=== PATIENT | male | born 1970 | race Caucasian/White ===

== ENCOUNTER 2020-03-28 10:23 | Outpatient (CLI) | payer OTHER, SELFPAY ==
--- NOTE | 2020-03-28 10:27 | EST_ITS ---
Patient Info Name: Tariq Rae Age: 50 years : 1970 Gender: Male Ht: 76 in Wt: 255 lbs BSA: 2.52 m2 Exam Date: 03/28/2020 10:37 AM Exam Location: [facility] Stress Patient Status: Outpatient Admit Date: 03/28/2020 Staff Ordering Physician: Bonnie Diaz NP Attending Provider: Bonnie Diaz NP Exercise Technologist: Ena Yo RDCS Exercise Physician: Lewis Trent DO Exam Type: CA stress test treadmill Study Info Indications R07.89 - Other chest pain A treadmill exercise stress test was performed. Summary 1. 1. Negative Harjeet exercise stress test for ischemic ST changes by ECG criteria. 2. 2. Good functional capacity, achieving 12 METs of workload. 3. 3. Baseline hypertension. 4. 4. Appropriate HR response to exercise. 5. 5. Appropriate HR recovery at 1 minute post exercise. 6. 6. No imaging with stress testing. 7. 7. Patient informed of the above results. Protocol: Harjeet Stress ECG Details Stage: REST Duration (min): 13 min : 54 sec Speed (mph): 0.0 Grade (%): 0 HR (bpm): 70 SBP (mmHg): 153 DBP (mmHg): 90 METS: --- Stage: REST Duration (min): 14 min : 19 sec Speed (mph): 0.0 Grade (%): 0 HR (bpm): 70 SBP (mmHg): 153 DBP (mmHg): 90 METS: --- Stage: STAGE 1 Duration (min): 1 min : 0 sec Speed (mph): 1.7 Grade (%): 10 HR (bpm): 93 SBP (mmHg): 153 DBP (mmHg): 90 METS: --- Stage: STAGE 1 Duration (min): 2 min : 0 sec Speed (mph): 1.7 Grade (%): 10 HR (bpm): 102 SBP (mmHg): 153 DBP (mmHg): 90 METS: --- Stage: STAGE 1 Duration (min): 3 min : 0 sec Speed (mph): 1.7 Grade (%): 10 HR (bpm): 101 SBP (mmHg): 162 DBP (mmHg): 77 METS: --- Stage: STAGE 2 Duration (min): 1 min : 0 sec Speed (mph): 2.5 Grade (%): 12 HR (bpm): 108 SBP (mmHg): 162 DBP (mmHg): 77 METS: --- Stage: STAGE 2 Duration (min): 2 min : 0 sec Speed (mph): 2.5 Grade (%): 12 HR (bpm): 113 SBP (mmHg): 175 DBP (mmHg): 74 METS: --- Stage: STAGE 2 Duration (min): 3 min : 0 sec Speed (mph): 2.5 Grade (%): 12 HR (bpm): 118 SBP (mmHg): 175 DBP (mmHg): 74 METS: --- Stage: STAGE 3 Duration (min): 1 min : 0 sec Speed (mph): 3.4 Grade (%): 14 HR (bpm): 127 SBP (mmHg): 168 DBP (mmHg): 73 METS: --- Stage: STAGE 3 Duration (min): 2 min : 0 sec Speed (mph): 3.4 Grade (%): 14 HR (bpm): 135 SBP (mmHg): 168 DBP (mmHg): 73 METS: --- Stage: STAGE 3 Duration (min): 3 min : 0 sec Speed (mph): 3.4 Grade (%): 14 HR (bpm): 139 SBP (mmHg): 184 DBP (mmHg): 66 METS: --- Stage: STAGE 4 Duration (min): 1 min : 0 sec Speed (mph): 4.2 Grade (%): 16 HR (bpm): 147 SBP (mmHg): 184 DBP (mmHg): 66 METS: --- Stage: STAGE 4 Duration (min):
== END 2020-03-28 10:24 | disposition home or self-care (01) ==
LOC: ANHCARD 10:25
PROVIDERS: PCP Internal Medicine; Visit Provider Nurse Practitioner
DX: R07.89 Other chest pain (principal)
CPT/HCPCS: 93017

== ENCOUNTER 2022-04-10 09:57 | Day surgery (SDC) | payer OTHER, SELFPAY ==
[2022-01-24 15:21] VITALS: BMI 30.4
[2022-03-28 11:57] VITALS: BMI 30.3
--- NOTE | 2022-04-10 07:49 | P.PNAN_ITS ---
Anes - Initial Pre Proc Eval Procedure: Operation Date: 04/10/22 12:00 Proposed Procedures p Screening Colonoscopy - Adalberto Chambers MD Date/Time: 04/10/22 07:49 Surgeon: Adalberto Chambers MD Pre Op Diagnosis: Neoplasm screening Patient Data Age: 52 Gender: M Height: 1.93 m Weight: 113 kg Allergies Allergy/AdvReac Type Severity Reaction Status Date / Time No Known Allergies Allergy Verified 04/10/22 11:04 Home Medications Medication Instructions Recorded Confirmed Type cholestyramine (with sugar) 4 gram 4 g PO TID diarrhea #60 ea 10/09/21 04/10/22 Rx powder for susp in a packet metoprolol succinate 200 mg 200 mg PO DAILY #90 tabs 11/13/21 04/10/22 Rx tablet,extended release 24 hr hydrochlorothiazide 25 mg tablet See Rx Instructions .Route 01/16/22 04/10/22 Rx .COMPLEX #90 tabs losartan 100 mg tablet 100 mg PO DAILY #90 tabs 02/12/22 04/10/22 Rx loperamide 2 mg capsule (Imodium 2 mg PO Q6H PRN Diarrhea 03/28/22 04/10/22 History A-D) amlodipine 10 mg tablet See Rx Instructions .Route 04/09/22 04/10/22 Rx .COMPLEX #90 tabs Patient hx anesthesia problems: none Family hx anesthesia problems: none Results Review: All pre-operative results and documents have been reviewed as part of the pre- operative evaluation. [facility] Past Medical History Medical History (Updated 04/10/22 @ 07:50 by Donavon Orellana DO) Bacterial meningitis Chicken pox GERD (gastroesophageal reflux disease) History of fracture wrist/hand Hypertension Mononucleosis Surgical History Surgical History (Updated 10/09/21 @ 13:02 by Corinne West CMA) History of back surgery L5-S1 surgery Hx laparoscopic cholecystectomy Hx of tonsillectomy Family History Family History Father Heart murmur Skin cancer Mother Diabetes mellitus Hypoglycemia Social History Social History (Updated 10/09/21 @ 13:09 by Corinne West CMA) Smoking status: Former smoker Smoking end date: 03/18/17 Alcohol intake: current Alcohol use details: 24 beers a month Substance use: never Substance use type: does not use Living arrangements: with family Spiritual care concerns: No Anes - Eval Final PreProcedure Day of Procedure 04/10/22 07:49 Patient weight: obese Heart: regular rate and rhythm Lungs: clear to auscultation Airway: Mallampati scale class II Neurological: alert and oriented Last oral intake: >/= 8 hours ASA classification: II Emergent: no Anesthetic plan: proceed Anesthesia type and monitoring: general GIVS and standard monitoring Results Review: All pre-operative results and documents have been reviewed as part of the pre- operative evaluation. Informed Consent: The patient's anesthetic plan and its attendant risks and benefits were discusse d with the patient/family/POA. Questions were solicited and answers provided to the satisfaction of the patient/family/POA.
[2022-04-10 11:00] VITALS: BP 142/95; PULSE 77; RESP 18; TEMP 36.7; O2SAT 97
[2022-04-10] MEDS: LACTATED RINGERS 1,000 ML 150 ML IV CONT (11:35)
--- NOTE | 2022-04-10 11:42 | PM.HPGS ---
History of Present Illness History of Present Illness Consent: Risks, benefits, and alternatives have been discussed and questions answered. Patient agrees to proceed with procedure. Chief complaint: Neoplasm screening Narrative: Tariq Rae is a 52 year old male here for first screening colonoscopy Review of Systems Constitutional: Constitutional: Denies headache(s) and Denies weakness Eyes: Eyes: Denies blurry vision ENT: Reports Normal hearing present, Denies headache(s) and Denies neck pain Cardiovascular: Cardiovascular: Denies chest pain and Denies dyspnea Respiratory: Respiratory: Denies dyspnea Gastrointestinal: Gastrointestinal: Reports no additional gastrointestinal complaints Genitourinary: Genitourinary: Denies dysuria Musculoskeletal: Musculoskeletal: Denies neck pain Integumentary/Breasts: Skin/Breast: Denies dry skin Neurologic: Reports Normal hearing present, Denies headache(s) and Denies weakness Psychiatric: Psychiatric: Denies anxiety Endocrine: Endocrine: Denies change in body appearance Hematologic/Lymphatic: Hematologic/Lymphatic: Denies easy bleeding Allergic/Immunologic: Allergic/Immunologic: Denies urticaria PMF Past Medical History Medical History (Updated 04/10/22 @ 07:50 by Donavon Orellana DO) Bacterial meningitis Chicken pox GERD (gastroesophageal reflux disease) History of fracture wrist/hand Hypertension Mononucleosis Surgical History Surgical History (Updated 10/09/21 @ 13:02 by Corinne West CMA) History of back surgery L5-S1 surgery Hx laparoscopic cholecystectomy Hx of tonsillectomy Family History Family History Father Heart murmur Skin cancer Mother Diabetes mellitus Hypoglycemia Social History Social History (Updated 10/09/21 @ 13:09 by Corinne West CMA) Smoking status: Former smoker Smoking end date: 03/18/17 Alcohol intake: current Alcohol use details: 24 beers a month Substance use: never Substance use type: does not use Living arrangements: with family Spiritual care concerns: No Meds Home Medications and Allergies Home Medications Medication Instructions Recorded Confirmed Type cholestyramine (with sugar) 4 gram 4 g PO TID diarrhea #60 ea 10/09/21 04/10/22 Rx powder for susp in a packet metoprolol succinate 200 mg 200 mg PO DAILY #90 tabs 11/13/21 04/10/22 Rx tablet,extended release 24 hr hydrochlorothiazide 25 mg tablet See Rx Instructions .Route 01/16/22 04/10/22 Rx .COMPLEX #90 tabs losartan 100 mg tablet 100 mg PO DAILY #90 tabs 02/12/22 04/10/22 Rx loperamide 2 mg capsule (Imodium 2 mg PO Q6H PRN Diarrhea 03/28/22 04/10/22 History A-D) amlodipine 10 mg tablet See Rx Instructions .Route 04/09/22 04/10/22 Rx .COMPLEX #90 tabs Allergies Allergy/AdvReac Type Severity Reaction Status Date / Time No Known Allergies Allergy Verified 04/10/22 11:04 Vital Signs Vital Signs - 24 hr 04/10/22 11:00 Temperature 98.1 F Pulse Rate 77 Respiratory Rate 18 Blood Pressure 142/95 H Pulse Oximetry 97 Oxygen Delivery Room Air Exam Const: General: comfortable and no acute distress HENMT: Face/Nose/Sinus: Normal nares present Eyes: General: appearance normal, both eyes and all related structures Neck: Neck: no JVD Resp: Auscultation: clear to auscultation bilaterally Cardio: Rate: regular rate Rhythm: regular rhythm GI: Inspection: non-distended GI Palp: Yes Soft to palpation Skin: General skin exam: normal color Neuro: General: gait normal Speech: normal speech Extrem: General: normal to inspection Psych: Mental Status: mental status grossly normal Assessment and Plan Assessment and plan (1) Screening for colon cancer: Code(s): Z12.11 - Encounter for screening for malignant neoplasm of colon Status: Acute Assessment and Plan: colonoscopy
[2022-04-10 12:01] VITALS: BP 119/86; PULSE 61; RESP 16; O2SAT 96
[2022-04-10 12:11] VITALS: BP 130/91; PULSE 64; RESP 16; O2SAT 98
[2022-04-10 12:21] VITALS: BP 124/97; PULSE 59; RESP 18; O2SAT 98
--- NOTE | 2022-04-10 12:55 | SUR.PHASEII ---
1250; pt and spouse speaking to Dr Leiva
--- NOTE | 2022-04-10 14:23 | WPDANESPN ---
Anes - Prog Note Post-Op Date/Time: 04/10/22 14:23 Cardiovascular status: normal Respiratory status: normal Airway patency: baseline Mental status: baseline Post-Op hydration status: normal Vital Signs: Last Vital Signs Temp 36.7 C 04/10/22 11:00 Pulse 59 L 04/10/22 12:21 Resp 18 04/10/22 12:21 BP 124/97 H 04/10/22 12:21 Pulse Ox 98 04/10/22 12:21 O2 Del Method Room Air 04/10/22 12:21 Pain Score (VAS): 0 I/O: Intake & Output 04/09/22 04/10/22 04/10/22 23:59 07:59 15:59 Intake Total 350 Balance 350 Post-procedural complaints: none Patient Feedback: Patient satisfied with anesthetic care. Other Findings: Patient vital signs back to baseline. Patient denies nausea and vomiting. Patient's pain under control. Patient OK for discharge.
== END 2022-04-10 12:55 | disposition home or self-care (01) ==
PROVIDERS: PCP Internal Medicine; Visit Provider Internal Medicine Gastroenterology
PROC: 0DJD8ZZ Inspection of Lower Intestinal Tract, Via Natural or Artificial Opening Endoscopic (ICD-10-PCS; CPT 45378; principal; 2022-04-10 12:00)
DX: Z12.11 Encounter for screening for malignant neoplasm of colon (principal)
CPT/HCPCS: 45378

== ENCOUNTER 2023-02-18 08:32 | Day surgery (SDC) | payer OTHER, SELFPAY ==
--- NOTE | 2023-02-18 07:21 | WPDANESEPPF ---
Anes - Initial Pre Proc Eval Procedure: Operation Date: 02/18/23 10:30 Proposed Procedures p Esophagogastroduodenoscopy - Adalberto Chambers MD Date/Time: 02/18/23 07:21 Surgeon: Adalberto Chambers MD Pre Op Diagnosis: Dysphagia Patient Data Age: 53 Gender: M Height: 1.93 m Weight: 116.12 kg Allergies Allergy/AdvReac Type Severity Reaction Status Date / Time No Known Allergies Allergy Verified 02/18/23 09:18 Home Medications Medication Instructions Recorded Confirmed Type loperamide 2 mg capsule (Imodium 2 mg PO Q6H PRN Diarrhea 03/28/22 02/18/23 History A-D) amlodipine 10 mg tablet 10 mg PO DAILY #30 tabs 07/30/22 02/18/23 Rx hydrochlorothiazide 25 mg tablet 25 mg PO DAILY #90 tabs 12/18/22 02/18/23 Rx metoprolol succinate 200 mg 200 mg PO DAILY #90 tabs 01/04/23 02/18/23 Rx tablet,extended release 24 hr colestipol 1 gram tablet 1 g PO BID 1 month #60 tabs 01/15/23 02/18/23 Rx losartan 100 mg tablet 100 mg PO DAILY #30 tabs 01/16/23 02/18/23 Rx potassium chloride 10 mEq 10 meq PO DAILY #90 tabs 01/16/23 02/18/23 Rx tablet,extended release omeprazole 20 mg capsule,delayed 20 mg PO .daily #30 caps 02/18/23 02/18/23 Rx release Patient hx anesthesia problems: none Family hx anesthesia problems: none Results Review: All pre-operative results and documents have been reviewed as part of the pre-operative evaluation. [facility] Past Medical History Medical History (Updated 02/18/23 @ 10:21 by Adalberto Chambers MD) Bacterial meningitis Chicken pox Chronic diarrhea Diverticulosis Dysphagia GERD (gastroesophageal reflux disease) History of fracture wrist/hand Hypertension Mononucleosis Surgical History Surgical History History of back surgery L5-S1 surgery Hx laparoscopic cholecystectomy Hx of tonsillectomy Family History Family History Father Heart murmur Skin cancer Mother Diabetes mellitus Hypoglycemia Social History Social History Social History: Caffeine-coffee, limited Smoking status: Current every day smoker Tobacco type: cigarettes Smoking end date: 03/18/17 Additional smoking assessment comments: 1 pack per day Alcohol intake: current Alcohol use details: 2 Substance use: never Substance use type: does not use Lack of Transportation: No Lack of Food: Never True Current Housing: I Have Housing Concerned About Future Housing: No Difficulty Paying Gas/Electric Bills: No Difficulty Paying for Meds: No Currently Unemployed: No Education: Associate Degree Difficulty w/ Childcare or Family Care: No Living arrangements: with family Spiritual care concerns: No Anes - Eval Final PreProcedure Day of Procedure 02/18/23 07:21 Patient weight: obese Heart: regular rate and rhythm Lungs: clear to auscultation Airway: Mallampati scale class II Neurological: alert and oriented Last oral intake: >/= 8 hours ASA classification: III Emergent: no Anesthetic plan: proceed Anesthesia type and monitoring: general GIVS and standard monitoring Results Review: All pre-operative results and documents have been reviewed as part of the pre-operative evaluation. Informed Consent: The patient's anesthetic plan and its attendant risks and benefits were discussed with the patient/family/POA. Questions were solicited and answers provided to the satisfaction of the patient/family/POA.
[2023-02-18 09:26] VITALS: BP 150/101; PULSE 76; RESP 18; TEMP 36.8; O2SAT 98; BMI 31.0
[2023-02-18] MEDS: LACTATED RINGERS 1,000 ML 150 ML IV CONT (09:35)
--- NOTE | 2023-02-18 10:20 | PM.HPGS ---
History of Present Illness History of Present Illness Consent: Risks, benefits, and alternatives have been discussed and questions answered. Patient agrees to proceed with procedure. Chief complaint: Dysphagia Narrative: Tariq Rae is a 53 year old male here with gerd and diarrhea after cholecystectomy better with questran, had colonoscopy but never egd Review of Systems Constitutional: Constitutional: Denies headache(s) and Denies weakness Eyes: Eyes: Denies blurry vision ENT: Reports Normal hearing present, Denies headache(s) and Denies neck pain Cardiovascular: Cardiovascular: Denies chest pain and Denies dyspnea Respiratory: Respiratory: Denies dyspnea Gastrointestinal: Gastrointestinal: Reports no additional gastrointestinal complaints Genitourinary: Genitourinary: Denies dysuria Musculoskeletal: Musculoskeletal: Denies neck pain Integumentary/Breasts: Skin/Breast: Denies dry skin Neurologic: Reports Normal hearing present, Denies headache(s) and Denies weakness Psychiatric: Psychiatric: Denies anxiety Endocrine: Endocrine: Denies change in body appearance Hematologic/Lymphatic: Hematologic/Lymphatic: Denies easy bleeding Allergic/Immunologic: Allergic/Immunologic: Denies urticaria PMFSH Past Medical History Medical History (Updated 02/18/23 @ 10:21 by Adalberto Chambers MD) Bacterial meningitis Chicken pox Chronic diarrhea Diverticulosis Dysphagia GERD (gastroesophageal reflux disease) History of fracture wrist/hand Hypertension Mononucleosis Surgical History Surgical History History of back surgery L5-S1 surgery Hx laparoscopic cholecystectomy Hx of tonsillectomy Family History Family History Father Heart murmur Skin cancer Mother Diabetes mellitus Hypoglycemia Social History Social History Social History: Caffeine-coffee, limited Smoking status: Current every day smoker Tobacco type: cigarettes Smoking end date: 03/18/17 Additional smoking assessment comments: 1 pack per day Alcohol intake: current Alcohol use details: 2 Substance use: never Substance use type: does not use Lack of Transportation: No Lack of Food: Never True Current Housing: I Have Housing Concerned About Future Housing: No Difficulty Paying Gas/Electric Bills: No Difficulty Paying for Meds: No Currently Unemployed: No Education: Associate Degree Difficulty w/ Childcare or Family Care: No Living arrangements: with family Spiritual care concerns: No Meds Home Medications and Allergies Home Medications Medication Instructions Recorded Confirmed Type loperamide 2 mg capsule (Imodium 2 mg PO Q6H PRN Diarrhea 03/28/22 02/18/23 History A-D) amlodipine 10 mg tablet 10 mg PO DAILY #30 tabs 07/30/22 02/18/23 Rx hydrochlorothiazide 25 mg tablet 25 mg PO DAILY #90 tabs 12/18/22 02/18/23 Rx metoprolol succinate 200 mg 200 mg PO DAILY #90 tabs 01/04/23 02/18/23 Rx tablet,extended release 24 hr colestipol 1 gram tablet 1 g PO BID 1 month #60 tabs 01/15/23 02/18/23 Rx losartan 100 mg tablet 100 mg PO DAILY #30 tabs 01/16/23 02/18/23 Rx potassium chloride 10 mEq 10 meq PO DAILY #90 tabs 01/16/23 02/18/23 Rx tablet,extended release Allergies Allergy/AdvReac Type Severity Reaction Status Date / Time No Known Allergies Allergy Verified 02/18/23 09:18 Vital Signs Vital Signs - 24 hr 02/18/23 09:26 Temperature 98.2 F Pulse Rate 76 Respiratory Rate 18 Blood Pressure 150/101 H Pulse Oximetry 98 Oxygen Delivery Room Air Exam Const: General: comfortable and no acute distress HENMT: Face/Nose/Sinus: Normal nares present Eyes: General: appearance normal, both eyes and all related structures Neck: Neck: no JVD Resp: Auscultation: clear to auscultatio
[2023-02-18 10:42] VITALS: BP 122/82; PULSE 68; RESP 18; O2SAT 95
[2023-02-18 10:52] VITALS: BP 124/91; PULSE 64; RESP 16; O2SAT 95
[2023-02-18 11:02] VITALS: BP 129/97; PULSE 66; RESP 15; O2SAT 98
--- NOTE | 2023-02-18 13:49 | WPDANESPN ---
Anes - Prog Note Post-Op Date/Time: 02/18/23 13:49 Cardiovascular status: normal Respiratory status: normal Airway patency: baseline Mental status: baseline Post-Op hydration status: normal Vital Signs: Last Vital Signs Temp 36.8 C 02/18/23 09:26 Pulse 66 02/18/23 11:02 Resp 15 02/18/23 11:02 BP 129/97 H 02/18/23 11:02 Pulse Ox 98 02/18/23 11:02 O2 Del Method Room Air 02/18/23 11:02 Pain Score (VAS): 0 I/O: Intake & Output 02/17/23 02/18/23 02/18/23 23:59 07:59 15:59 Intake Total 600 Balance 600 Post-procedural complaints: none Patient Feedback: Patient satisfied with anesthetic care. Other Findings: Patient vital signs back to baseline. Patient denies nausea and vomiting. Patient's pain under control. Patient OK for discharge.
== END 2023-02-18 11:16 | disposition home or self-care (01) ==
PROVIDERS: PCP Internal Medicine; Visit Provider Internal Medicine Gastroenterology
PROC: 0DJ08ZZ Inspection of Upper Intestinal Tract, Via Natural or Artificial Opening Endoscopic (ICD-10-PCS; CPT 43235; principal; 2023-02-18 10:30)
DX: K21.00 Gastro-esophageal reflux disease with esophagitis, without bleeding (principal)
CPT/HCPCS: 43239

== ENCOUNTER 2023-02-19 11:04 | Outpatient (NON) | payer OTHER, SELFPAY | END 2023-02-19 11:05 | disposition home or self-care (01) | LOC: ANHLAB 11:06 | PROVIDERS: PCP Internal Medicine; Visit Provider Internal Medicine Gastroenterology | DX: K21.00 Gastro-esophageal reflux disease with esophagitis, without bleeding (principal); K29.50 Unspecified chronic gastritis without bleeding | CPT/HCPCS: 88305 ==

== ENCOUNTER 2023-08-05 11:46 | Outpatient (CLI) | payer OTHER, SELFPAY ==
--- NOTE | ~2023-08-05 | US_ITS ---
EXAMINATION: US retroperitoneal duplex ltd DATE: 08/05/2023 12:09 INDICATION: Essential primary hypertension. TECHNIQUE: Multiple grayscale, color Doppler, and pulsed Doppler images of the kidneys and renal eliz ron were obtained. COMPARISON: None. FINDINGS: The aorta peak systolic velocity is 77 cm/s. The right renal artery is obscured in the origin and mid segments. The right renal artery peak systolic velocity is 100 cm/s in the distal segment. The left renal arteries obscured in the origin and mid segments. The left renal artery peak systolic velocity is 73 cm/s in the distal segment. IMPRESSION: 1. No Doppler evidence of renal artery stenosis. Reviewed, dictated and finalized at location A.
== END 2023-08-05 11:47 ==
PROVIDERS: PCP Nurse Practitioner; Visit Provider Nurse Practitioner
DX: I10 Essential (primary) hypertension (principal)
CPT/HCPCS: 93976

== ENCOUNTER 2024-12-04 09:37 | Emergency (ER) | payer OTHER, SELFPAY ==
--- NOTE | ~2024-12-04 | CT_ITS ---
EXAMINATION: CT brain wo con DATE: 12/04/2024 10:05 INDICATION: Near syncope. TECHNIQUE: Computed tomography (CT) of the head was performed without intravenous contrast. The mA was adjusted according to patient size. Iterative reconstruction technique was employed. The dose-length product was 605.33 mGy-cm. COMPARISON: None FINDINGS: There is no intracranial hemorrhage, acute infarction, or abnormal intracranial mass lesion. There are scattered areas of low attenuation in the cerebral white matter, which is within normal limits for the patient's age. The ventricles are normal in size. The orbits are normal. There is mucosal thickening in the paranasal sinuses. The mastoid air cells are normal. IMPRESSION: 1. Normal aging brain. Reviewed, dictated and finalized at location E. IMPRESSION: 1. Normal aging brain.
--- NOTE | ~2024-12-04 | XR_ITS ---
EXAMINATION: XR chest 1V, 12/04/2024 10:02 CDT HISTORY: near syncope COMPARISON: No comparisons available. Technique: Single view. Findings: The lungs are clear, no effusion. No pneumothorax. Heart is normal size. Mediastinal and hilar contours are within normal limits. Bony thorax no acute abnormality. Impression: No acute cardiopulmonary abnormality. Reviewed, dictated and finalized at location A. Impression: No acute cardiopulmonary abnormality.
--- NOTE | 2024-12-04 09:38 | ECG_ITS ---
Test Date: 2024-12-04 09:53:03 Measurements Intervals Rarden Rate: 64 P: 22 NH: 206 QRS: -35 QRSD: 106 T: 35 QT: 402 QTc: 417 Interpretive Statements SINUS RHYTHM MARKED LEFT AXIS DEVIATION [QRS AXIS < -30] INCOMPLETE RIGHT BUNDLE BRANCH BLOCK [90+ ms QRS DURATION, TERMINAL R IN V1/V2, 40+ ms S IN I/aVL/V4/V5/V6] ABNORMAL ECG No previous ECG available for comparison Electronically Signed On 12-04-2024 13:05:25 CDT by Skip Smith M.D.
--- OUTSIDE RECORDS SUMMARY | 2024-12-04 09:39 | XMS_ITS | Encounter Summary ---
Author Organization [facility] Address [address] [address] [place] [address] Care Team Providers Care Senior Sous Chef Name Role Phone Yonathan Partida DO Primary Care Provider Reason for Visit * Reason Onset Date Comments Courtesy Call 04/26/2019 Encounter Details Date Type Department Care Team (Late st Contact Info) Description 04/26/2019 Telephone [facility] [address] [address] Aimee Wick, RT Courtesy Call Social History Tobacco Use Types Packs/Day Years Used Date Smoking Tobacco: Every Day Smokeless Tobacco: Former Alcohol Use Standard Drinks/Week Comments Yes 0 (1 standard drink = 0.6 oz pur e alcohol) Sex and Gender Information Value Date Recorded Sex Assigned at Not on file 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 Gender Identity Not on file Sexual Orientation Not on file documented as of this encounter Plan of Treatment Not on file documented as of this encounter Visit Diagnoses Not on filedocumented in this encounter Additional Health Concerns Infection Onset Date Last Indicated Resolved Time R/O COVID-19 2020 2020 02/13/2020 1:31 AM TRAINING AND DEVELOPMENT ASSISTANT COVID-19 2020 2020 03/11/2020 1:16 AM TRAINING AND DEVELOPMENT ASSISTANT documented as of this encounter Care Teams Senior Sous Chef Relationship Specialty Start Date End Date Yonathan Partida DO [address] [facility] [address] [place] [address] PCP - General Internal Medicine 09/03/19 documented as of this encounter
--- OUTSIDE RECORDS SUMMARY | 2024-12-04 09:39 | XMS_ITS | Clinical Summary ---
Author Organization [place] [address] Address [address] [facility] [place] [address] Phone Care Team Providers Care Rug Weaver Name Role Phone TiffanieYonathan choe Serge Primary Care Provider Allergies No known active allergies Medications losartan (COZAAR) 50 mg tablet Take 50 mg by mouth daily. Active amLODIPine (NORVASC) 5 mg tablet Take 5 mg by mouth daily. Active hydroCHLOROthia zide 25 mg tablet Take 25 mg by mouth daily. Active ibuprofen (MOTRIN) 200 mg tablet Take 200 mg by mouth every 6 hours as needed for Pain, Mild. Active acetaminophen (TYLENOL) 325 mg tablet Take 650 mg by mouth every 6 hours as needed. 2 Active metoprolol succinate (TOPROL XL) 200 mg Extended Release 24 hour tablet Take 200 mg by mouth daily. Active methylPREDNISol one (MEDROL DOSPACK) 4 mg Tablets, Dose Pack Take as directed 21 Tablet 2 Active azelastine (ASTELIN) 137 mcg/actuation nasal spray Administer 2 Sprays in each nostril 2 times daily. 1 mL 2 Active loratadine (Claritin) 10 mg tablet Take 1 Tablet (10 mg) by mouth daily. 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 Gender Identity Not on file Sexual Orientation Not on file Last Filed Vital Signs Vital Sign Reading Time Taken Comments Blood Pressure 157/102 08/16/2021 4:40 PM CDT Pulse 84 08/16/2021 4:40 PM CDT Temperature 36.6 C (97.8 F) 08/16/2021 4:40 PM CDT Respiratory Rate 18 08/16/2021 4:40 PM CDT Oxygen Saturation 98% 08/16/2021 4:40 PM CDT Inhaled Oxygen Concentration - - Weight 113.4 kg (250 lb) 08/16/2021 4:40 PM CDT Height 193 cm (6' 4) 08/16/2021 4:40 PM CDT Body Mass Index 30.43 08/16/2021 4:40 PM CDT Plan of Treatment Health Maintenance Due Date Last Done Comments HEPATITIS B VACCINES (1 of 3 - 19+ 3-dose series) 02/09/1987 COLORECTAL SCREENING 02/09/2013 Colorectal Cancer Screening 02/09/2013 FIT-DNA Q 3 years 02/09/2013 FIT/FOBT Q 1 year 02/09/2013 Flex Sig/CT Colonography Q 5 years 02/09/2013 ZOSTER VACCINE (1 of 2) 02/09/2018 DTAP/TDAP/TD VACCINES (2 - T d or Tdap) 06/09/2019 06/08/2009 INFLUENZA VACCINE (#1) 2024 COVID-19 Vaccine ( season) 2024 01/16/2021, 06/06/2020, 05/16/2020 Insurance [facility] CHO[facility] [id number] [employer] Care Teams Rug Weaver Relationship Specialty Start Date End Date Yonathan Partida DO [address] [address] PCP - General Internal Medicine 09/03/19
--- OUTSIDE RECORDS SUMMARY | 2024-12-04 09:39 | XMS_ITS | Clinical Summary ---
Author Organization [facility] Address [address] [place] [address] Care Team Providers Care Manager Change Name Role Phone Bob Stark MD Unavailable [phone] Lucie Lou RN Unavailable Yonathan Partida DO Primary Care Provider [phone] [facility],non-owned Affiliates and Associated Physician Practices is amultiple site organization consisting of ambulatory clinics and hospital sitesin [place], [place], [place] and [place]. This disclosure is being madepursuant to the Care Everywhere program and may not contain all information available regarding this patient. Last updated 17.[facility] [employer] [facility] [employer] Allergies Active Allergy Reactions Criticality Noted Date Comments Lisinopril Cough 06/05/2012 Naproxen 05/23/2009 STOMACH PROB Medications * Be aware that medications may not be up to date on this document. Alwaysverify current medications with the patient. amLODIPine (NORVASC) 10 MG tablet Take 1 Tab by mouth once daily. 30 Tab 5 4 Active losartan-hydro chlorothiazide (HYZAAR) 100-25 MG tablet TAKE ONE TABLET BY MOUTH ONCE DAILY 30 Tab 5 4 Active multivitamin daily tablet Take 1 tablet by mouth daily with food Active metoprolol succinate XL 24hr (TOPROL XL) 200 MG tablet Take 200 mg by mouth once daily Active acetaminophen (TYLENOL) 325 MG tabletIndicati ons:Abdominal pain, epigastric Take 2 (two) tablets by mouth every 6 hours as needed Maximum allowable Acetaminophen amount = 4 Grams (4000 mg) / 24 hours. 2 Active VITAMIN D PO Active Active Problems Problem Noted Date Diagnosed Date Abdominal pain, epigastric 04/02/2021 Thickening of wall of gallbladder 04/02/2021 Follow-up examination, following other surgery 0 07/27/2013 Degeneration of lumbar or lumbosacral interverte bral disc 07/09/2013 Displacement of lumbar inter vertebral disc without myelopathy 07/09/2013 GERD (gastroesophageal reflux disease) 4 Overview (04/14/2013): Handout 04/14/13 Noncompliance with treatment 11/14/2011 Overview (11/10/2013): Medications, office visits Recurrent no-shows IBS (irritable bowel syndrome) 07/10/2010 Overview (11/20/2011): Celiac normal 11/27 Hypertension 2008 Overview (06/08/2009): DASH Diet handout 07/22 2 GRAM SODIUM DIET handout provided to patient 06/08/2009 Tobacco abuse 2008 Overview (04/14/2013): Chews and smokes Immunizations Immunization Administration Dates Next Due INFLUENZA VACCINE 12/16/2013,12/16/2012 PNEUMOCOCCAL PPSV23 06/05/2012 TDAP (7yrs+) 06/08/2009 Family History Medical History Relation Name Comments Cancer Father multiple myelom a/skin Pacemaker Father Arthritis Mother Diabetes Mother Relation Name Status Comments Father Mother Social History Tobacco Use Types Packs/Day Years Used Date Smoking Tobacco: Light Smoker Cigarettes Started: 03/18/1995 Cigars Smokeless Tobacco: Former Snuff, Chew Quit: 01/16/2013 Tobacco Cessation:Counseling Given: Yes Comments:Chewing since age 8 Alcohol Use Standard Drinks/Week Comments Yes 0 (1 standard drink = 0.6 oz pur e alcohol) 10-12/night, 3 nights per week Sex and Gender Information Value Date Recorded Sex Assigned at Not on file Legal Sex 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 Gender Identity Not on file Sexual Orientation Not on file 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 [employer] Not on file Not on file Not on file Last Filed Vital Signs Vital Sign Reading Time Taken Comments Blood Pressure 165/94 05/09/2021 3:26 PM SEWING MACHINE TESTER Pulse 67 05/09/2021 3:26 PM SEWING MACHINE TESTER Temperature 37 C (98.6 F) 04/04/2021 11:21 AM SEWING MACHINE TESTER Respiratory Rate 16 04/04/2021 11:2 1 AM SEWING MACHINE TESTER Oxygen Saturation 99% 05/09/2021 3:26 PM SEWING MACHINE TESTER Inhaled Oxygen Concentration - - Weight 119.6 kg (263 lb 9.6 oz) 05/09/2021 3:26 PM SEWING MACHINE TESTER Height 193 cm (6' 4) 05/09/2021 3:26 PM SEWING MACHINE TESTER Body Mass Index 32.09 05/09/2021 3:26 PM SEWING MACHINE TESTER Plan of Treatment Health Maintenance Due Date Last Done Comments COLOGUARD (AGES 45-75) - COLON CA SCREENING 1968 COLON MONITORING 1968 COLONOSCOPY - COLON CA SCREENING 1968 CT COLONOGRAPHY - COLON CA SCREENING 1968 Colorectal Cancer Screening 1968 FIT - COLON CA SCREENING 1968 FLEX SIG - COLON CA SCREENING 1968 HIV SCREENING 02/09/1983 HEPATITIS C SCREENING 02/05/1986 HEPATITIS B VACCINE (1 of 3 - 19+ 3-dose series) 02/09/1987 PNEUMOCOCCAL VACCINE 50+ (2 of 2 - PCV) 06/05/2013 06/05/2012 LIPID TESTING 11/14/2016 11/15/2011 ZOSTER VACCINE (1 of 2) 02/09/2018 DTAP/TDAP/TD VACCINES (2 - Td or Tdap) 06/09/2019 06/08/2009 DEPRESSION SCREENING 03/18/2024 SCREENING FOR DIABETES 04/04/2024 2, 04/03/2021, 04/02/2021, Additional history exists COVID-19 VACCINE ( season) 2024 01/16/2021, 06/06/2020, 05/16/2020 INFLUENZA VACCINE (#1) 2024 12/16/2013, 2012 HIB VACCINE Aged Out No longer eligi ble based on patient's age to complete this topic HPV VACCINE Aged Out No longer eligi ble based on patient's age to complete this topic MENINGOCOCCAL (Group B) VACCINE SHARED DECISION-MAKING Aged Out No longer eligible based on patient's age to complete this topic MENINGOCOCCAL GROUPS A/C/Y/W VACCINE Aged Out No longer eligible based on patient's age to complete this topic Goals Goal Patient Goal Type Associated Problems Recent Progress Patient-Stated? Author Blood Pressure < 140/90 Blood Pressure 165/94(2021 3:26 PM SEWING MACHINE TESTER) No Tomasa Denis MA Quit smoking / using tobacco Lifestyle No Tomasa Denis MA Procedures Procedure Name Priority Date/Time Associated Diagnosis Comments BASIC METABOLIC PANEL (CALCIUM TOTAL) AM Draw 04/04/2021 5:01 AM SEWING MACHINE TESTER Hypokalemia LIPID PROFILE Routine 11/15/2011 9:19 AM CDT IBS (irritable bowel syndrome) Hypertension Noncompliance with treatment from Last 3 Months or Most Recently Relevant to Health Maintenance Results * (ABNORMAL) BASIC METABOLIC PANEL (CALCIUM TOTAL) (04/04/2021 5:01 AM SEWING MACHINE TESTER) Glucose 123(H) 70 - 105 mg/dL 04/04/2021 5:42 AM [facility] Sodium 141 136 - 145 mmol/L 04/04/2021 5:42 AM [facility] Potassium 3.2(L) 3.5 - 5.1 mmol/L 04/04/2021 5:42 AM [facility] Chloride 108(H) 98 - 107 mmol/L 04/04/2021 5:42 AM [facility] CO2 24 23 - 31 mmol/L 04/04/2021 5:42 AM [facility] Calcium 8.5 8.4 - 10.4 mg/dL 04/04/2021 5:42 AM [facility] Anion Gap 9 8 - 18 mmol/L 04/04/2021 5:42 AM [facility] BUN 13 8.4 - 25.7 mg/dL 04/04/2021 5:42 AM [facility] Creatinine 0.92 0.72 - 1.25 mg/dL 04/04/2021 5:42 AM [facility] eGFR by MDRD >60 >60 mL/min/1.7 3m2 04/04/2021 5:42 AM SEWING MACHINE TESTER [facility] eGFR by MDRD >60 >60 mL/min/1.7 3m2 04/04/2021 5:42 AM [facility] Blood BLOOD SPECIMEN / Unknown Lab Venipuncture / Unknown 04/04/2021 5:01 AM SEWING MACHINE TESTER 04/04/2021 5:17 AM SEWING MACHINE TESTER us Gilbert Key MD LAB - CHEMISTRY ORDERABLES Fin al Result Performing Organization Address City/[facility]/ZIP Co de Phone Number [facility] [address] [place] [address] * (ABNORMAL) LIPID PROFILE (11/15/2011 9:19 AM CDT) [facility] Signature Cholesterol 208(H) 125 - 200 mg/dL [facility] Comment: Test Performed at: [facility] [address] [place] [address] GRICELDA DAVE DO,MPH HDL Cholesterol 49 > OR = 40 mg/dL [facility] Triglycerides 159(H) <150 mg/dL [facility] LDL Calculated 127 <130 mg/dL (calc) [facility] Comment: Desirable range <100 mg/dL for patients with CHD or diabetes and <70 mg/dL for diabetic patients with known heart disease. CHOL/HDLC RATIO 4.2 < OR = 5.0 (calc) [facility] Non HDL Cholesterol 159 mg/dL (calc) [facility] Comment: Target for non-HDL cholesterol is 30 mg/dL higher than LDL cholesterol target. Blood specimen (specimen) BLOOD SPECIMEN / Unknown 11/15/2011 9:19 AM CDT 11/15/2011 9:20 AM CDT us Hector Patel MD LAB - CHEMISTRY ORDERABLES Fi nal Result Performing Organization Address City/[facility]/ZIP Co de Phone Number [facility] [address] [place] [address] from Last 3 Months or Most Recently Relevant to Health Maintenance Insurance [employer] [facility] SELF PAY NO INSURANCE Member Subscriber Plan / Payer (Ef fective for All Dates) Name:Tariq Rae Member ID:Not on file Relation to Subscriber:Not on file Name:TARIQ RAE Subscriber ID:Not on file (Home) Address: [address] [place] [address] Payer ID:Not on file Group ID:Not on file Type:Self Pay Address: [place], [place] Advance Directives * Full Code (Latest Code Status on File) Date Activated Date Inactivated Comments 04/02/2021 1:12 PM 04/04/2021 2:03 PM * Full Code Date Activated Date Inactivated Comments 07/16/2013 4:43 PM 07/17/2013 3:27 PM * Full Code Date Activated Date Inactivated Comments 06/08/2009 12:39 PM 07/16/2013 4:43 PM Unplug if ho peless. NICKIE is Sofi Rae * Full Code Date Activated Date Inactivated Comments 06/08/2009 12:36 PM 06/08/2009 12:39 PM * Full Code Date Activated Date Inactivated Comments 05/26/2009 1:45 PM 05/27/2009 10:43 PM Care Teams Manager Change Relationship Specialty Start Date End Date Yonathan Partida DO PCP - General Internal Medicine 04/02/21 Bob Stark MD Neurological Surgery 07/14/13 Lucie Lou, RN Mine Analyst 07/17/13
--- OUTSIDE RECORDS SUMMARY | 2024-12-04 09:40 | XMS_ITS | Patient Health Record ---
Author Organization [facility] Address [address] [place] [address] Care Team Providers Care Md Urologist Name Role Phone Paco Snow Primary Care Provider Marlo Jacinto Unavailable [phone] Mi FERNANDEZ, Bob Unavailable Unavailable Reason For Referral No Information Plan Of Treatment No Information
--- NOTE | 2024-12-04 09:55 | ED.SYNCOPE ---
HPI - Syncope General Chief Complaint: Recheck/Abnormal Lab/Rx Stated Complaint: my blood pressure spiked and I almost passed out Time Seen by Provider: 12/04/24 09:42 Source: patient Mode of arrival: ambulatory Limitations: no limitations History of Present Illness HPI narrative: Jacky is a 54-year-old male patient presenting to the ER today with complaints of near syncopal episode. 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 He did have a bowel movement which he thought was going to improve his symptoms however he began sweating and got back up and felt near syncopal again. Reports some associated shortness of breath at that time he denied any chest pain. He has not had any URI symptoms. History hypertension-states he was on 4 different blood pressure medications and a couple weeks ago he was out of 2 of hypertensive medications. Saw his PCP yesterday and they started him on clonidine. Took his 1st dose this morning. Currently takes Toprol losartan, hydrochlorothiazide, and the clonidine for his hypertension. Denies any CAD history. Denies history of hyperlipidemia/diabetes. States he has a headache at this time currently rating it a 4/10 but otherwise he denies any pain. Related Data Home Medications ?Medication ?Instructions ?Recorded ?Confirmed ?Last Taken ?Type loperamide 2 mg capsule (Imodium 2 mg PO Q6H PRN Diarrhea 03/28/22 12/03/24 Unknown History A-D) clindamycin phosphate 1 % topical topical 08/05/23 12/03/24 Unknown History gel fluorouracil 5 % topical cream applic topical 08/05/23 07/31/24 Unknown History cholecalciferol (vitamin D3) 125 125 mcg PO DAILY 01/29/24 12/03/24 Unknown History mcg (5,000 unit) capsule Allergies Allergy/AdvReac Type Severity Reaction Status Date / Time No Known Allergies Allergy Verified 12/03/24 08:31 Review of Systems Review of Systems: Pertinent positives per HPI. Patient denies any fever, chills, rash, headache, visual changes, dizziness, cough, shortness of breath, chest pain, palpitations, nausea, vomiting, diarrhea, constipation, abdominal pain, or any urinary issues. [facility] Past Medical History Medical History Bacterial meningitis Chicken pox Chronic diarrhea Diverticulosis Dysphagia GERD (gastroesophageal reflux disease) GERD with esophagitis History of fracture wrist/hand Hypertension Irritable bowel syndrome with diarrhea Mononucleosis Surgical History Surgical History Hx laparoscopic cholecystectomy History of back surgery L5-S1 surgery Hx of tonsillectomy Family History Family History Father Heart murmur Skin cancer Mother Diabetes mellitus Hypoglycemia Social History Social History Social History: Caffeine-coffee, limited Smoking status: Former smoker Tobacco type: cigarettes Smoking end date: 03/18/17 Additional smoking assessment comments: 1 pack per day Alcohol intake: current Alcohol use details: 2 Substance use: never Substance use type: does not use Do You Feel Safe in your Home?: Yes Lack of Transportation: No Lack of Food: Never True Current Housing: I Have Housing Concerned About Future Housing: No Difficulty Paying Gas/Electric Bills: No Difficulty Paying for Meds: No Currently Unemployed: No Education: Associate Degree Difficulty w/ Childcare or Family Care: No Living arrangements: with family Spiritual care concerns: No Comments At the time of my signature, I reviewed and agree with the nursing past medical, surgical, social, and family history. There is no relevant family history pertinent to the patient complaint. Exam Narrative: General: Well-developed, well nourished, in no apparent distress Head: Normocephalic, atraumatic Eyes: Pupils equally round and reactive to light bilaterally, EOM intact, sclera and conjunctive clear, no discharge, lids normal Ears: TMs intact and clear, ear canals clear, no drainage, grossly hearing normal. Nose: Nares patent, no discharge, no inflammation, no sinus tenderness. Mouth: Oropharynx without lesions or masses, good dentition, MMM. Tongue midline, even rise and fall of uvula Neck: Supple, trachea midline, no enlargement of anterior or posterior cervical nodes, no thyroid masses or goiter palpable. Cardio: Regular rate and rhythm, s1 and s2 normal, no murmur appreciated. Resp: Clear to auscultation bilaterally anteriorly and posteriorly, no rhonchi, rales, wheezing or rubs Musculoskeletal: No deformity, non-tender to palpation, grossly normal range of motion, muscle strength strong and equal, peripheral pulse strong, no edema, no cyanosis, normal gait and station Neuro: Alert and oriented x4 with normal speech, no focal deficits, cranial nerves I through XII intact, muscle strength 5 out of 5, sensation intact bilaterally, negative Romberg test Course Course Emergency Course: Portions of this record may have been created with voice recognition software. Vital Signs Vital signs: Vital Signs Temperature 36.5 C 12/04/24 10:14 Pulse Rate 65 12/04/24 10:14 Respiratory Rate 13 12/04/24 10:14 Blood Pressure 132/89 12/04/24 10:14 Pulse Oximetry 98 12/04/24 10:14 Oxygen Delivery Room Air 12/04/24 10:14 Temperature 36.5 C 12/04/24 10:14 Pulse Rate 60 12/04/24 12:59 Respiratory Rate 18 12/04/24 12:59 Blood Pressure 138/97 H 12/04/24 12:59 Pulse Oximetry 98 12/04/24 12:59 Oxygen Delivery Room Air 12/04/24 10:14 Vital signs reviewed MDM - Syncope MDM Narrative Medical decision making narrative: At the time of visit patient is resting comfortably on the exam table. Patient appears to be nontoxic. Complaints of near syncopal episode. 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 He did have a bowel movement which he thought was going to improve his symptoms however he began sweating and got back up and felt near syncopal again. Reports some associated shortness of breath at that time he denied any chest pain. He has not had any URI symptoms. History hypertension-states he was on 4 different blood pressure medications and a couple weeks ago he was out of 2 of hypertensive medications. Saw his PCP yesterday and they started him on clonidine. Took his 1st dose this morning. Currently takes Toprol losartan, hydrochlorothiazide, and the clonidine for his hypertension. Denies any CAD history. Denies history of hyperlipidemia/diabetes. States he has a headache at this time currently rating it a 4/10 but otherwise he denies any pain. Vital signs are stable at the time of assessment. Cardiac workup and CT head ordered. EKG: EKG shows sinus rhythm with a heart rate of 60 form beats per minute with a marked left axis deviation incomplete right bundle-branch block. No ST elevation or depression noted. Labs: CBC shows white blood cell count 7.9, H&H of 14.3 in 41.1, platelet count of 240, anti coagulation studies show PT of 13.5, APTT of 21.7, D-dimer less than 0.27, sodium of 140, potassium 2.9, chloride 103, DEXA 28, BUN 21, creatinine 0.9, glucose slightly elevated 111, liver function test within normal limits, initial troponin was less than 0.012 and 2nd troponins less than 0.012. Diagnostics: Chest x-ray is negative for any acute cardiopulmonary process, CT brain shows normal aging brain-no acute intracranial process. Plan: I suspect patient has near syncopal episode with hypokalemia. 40 mEq of potassium was given p.o. and and 20 mEq of potassium was given IV. Patient has had 2 L of fluid. His symptoms have improved and he is denying any chest pain or shortness of breath. Recommend talking to his PCP in regards to taking the clonidine-may need to switch this to nighttime. Supportive measures were discussed with the patient and they voiced understanding discharge instructions and agrees to treatment plan. Return precautions reviewed Differential Diagnosis Differential diagnosis: Likely syncope due to orthostatic hypotension, vasovagal syncope, complete atrioventricular block, subarachnoid hemorrhage, pulmonary embolism and dehydration Lab Data 12/04/24 10:30 12/04/24 10:30 Labs: Lab Results 12/04/24 12/04/24 12/04/24 Range/Units 10:30 11:01 12:57 WBC 7.9 (4.5-10.0) K/mm3 RBC 4.60 (4.6-6.20) M/mm3 Hgb 14.3 (14.0-18.0) g/dL Hct 41.1 L (42.0-52.0) % MCV 89.3 (80-100) fl MCH 31.1 (26-34) pg MCHC 34.8 (32-36) g/dl RDW 13.1 (11.5-14.5) % Plt Count 240 (150-375) k/mm3 MPV 11.8 H (7.4-10.4) fl Immature Gran % (Auto) 0.4 (0-0.5) % Neut % (Auto) 64.3 (45.5-73.1) % Lymph % (Auto) 22.5 (18.3-44.2) % Dickey % (Auto) 7.8 (2.6-8.5) % Eos % (Auto) 4.2 (0-4.4) % Baso % (Auto) 0.8 (0.2-1.2) % Lymph # (Auto) 1.77 (0.9-3.2) K/mm3 Dickey # (Auto) 0.6 (0.1-0.6) K/mm3 Eos # (Auto) 0.3 (0-0.3) K/mm3 Baso # (Auto) 0.1 (0.0-0.1) K/mm3 Abs Immat Gran (auto) 0.03 (0.00-0.031) K/mm3 Absolute Neuts (auto) 5.1 (1.3-6.7) K/mm3 Absolute Nucleated RBC 0.000 (0.0-0.012) K/mm3 Nucleated RBC % 0.0 (0.0-0.2) % PT 13.5 (11.1-14.7) Seconds INR 1.0 APTT 21.7 L (22.3-36.8) Seconds D-Dimer < 0.27 (<0.48) ug/mL Sodium 140 (137-145) mmol/L Potassium 2.9 L (3.4-5.0) mmol/L Chloride 103 (98-107) mmol/L Carbon Dioxide 28 (22-30) mmol/L Anion Gap 9 (4-12) mmol/L BUN 21 H (9-20) mg/dL Creatinine 0.98 (0.7-1.3) mg/dL Estim Creat Clear Calc 91 ml/min Estimated GFR > 60 (59 - ) Glucose 111 H (65-110) mg/dL Calcium 9.2 (8.4-10.2) mg/dL Total Bilirubin 1.4 H (0.2-1.3) mg/dL AST 32 (17-59) U/L ALT 34 (6-50) U/L Alkaline Phosphatase 65 (38-126) U/L Troponin I < 0.012 < 0.012 (0.000-0.034) ng/mL Total Protein 7.7 (6.3-8.2) g/dL Albumin 4.5 (3.5-5.1) g/dL Imaging Data Radiologist's impression: ITS Impressions Head CT 12/04/24 10:09 IMPRESSION: 1. Normal aging brain. Chest X-Ray 12/04/24 10:11 Impression: No acute cardiopulmonary abnormality. ECG Data EKG #1: Attestation: I personally reviewed and interpreted this ECG as follows: ECG completion date: 12/04/24 ECG completion time: :53 Prior ECG tracings: available for review Interpretation: EKG shows sinus rhythm with marked left axis deviation with an incomplete right bundle branch block. Heart rate 64 beats per minute. ME intervals 206 milliseconds, QRS durations 106 milliseconds, QT-QTC is 402-412 milliseconds, P-R-T axis is 22 -35 35 Discharge Plan Discharge Clinical Impression: Near syncope, Hypokalemia Patient Disposition: Home Condition: Stable Instructions: Antibiotic Form, Hypokalemia (ED), Near Syncope (ED) Additional Instructions: EKG is reassuring in the ER. Labs are overall normal except for your potassium level which was 2.9 CT head is negative for any acute intracranial process Chest x-rays negative for any acute cardiopulmonary process Continue medications as prescribed-Hold clonidine until you can talk to your provider-may need to take at nighttime Increase fluids and stay well hydrated Change positions slowly Eat a well-balanced diet-foods enriched with potassium. Follow-up with your PCP next week as discussed Patient Language: Estonian Prescriptions: No Action clindamycin phosphate 1 % gel topical fluorouracil 5 % cream topical cholecalciferol (vitamin D3) 125 mcg (5,000 unit) capsule 125 mcg PO DAILY potassium chloride 10 mEq tablet extended release 10 meq PO DAILY Qty: 90 3RF clonidine HCl 0.1 mg tablet See Rx Instructions .ROUTE .COMPLEX Qty: 90 1RF Dose Instruction: TAKE 1 TABLET BY MOUTH EVERY DAY Rx Instructions: TAKE 1 TABLET BY MOUTH EVERY DAY hyoscyamine sulfate [Levsin] 0.125 mg tablet 0.125 mg PO .every 6 hours PRN (Reason: diarrhea) 90 Days Qty: 360 3RF colestipol 1 gram tablet See Rx Instructions .ROUTE .COMPLEX Qty: 180 2RF Dose Instruction: TAKE 1 TABLET BY MOUTH TWICE A DAY Rx Instructions: TAKE 1 TABLET BY MOUTH TWICE A DAY hydrochlorothiazide 25 mg tablet 25 mg PO DAILY Qty: 90 1RF losartan 100 mg tablet See Rx Instructions .ROUTE .COMPLEX Qty: 90 1RF Dose Instruction: TAKE 1 TABLET BY MOUTH DAILY Rx Instructions: TAKE 1 TABLET BY MOUTH DAILY metoprolol succinate 200 mg tablet extended release 24 hr See Rx Instructions .ROUTE .COMPLEX Qty: 90 1RF Dose Instruction: TAKE 1 TABLET BY MOUTH EVERY DAY Rx Instructions: TAKE 1 TABLET BY MOUTH EVERY DAY loperamide [Imodium A-D] 2 mg Capsule 2 mg PO Q6H PRN (Reason: Diarrhea) Follow-up/Referrals: Yonathan Partida DO [Primary Care Provider, Internal Medicine] Time of Disposition: 15:40 Quality NIHSS Nursing Documentation ED NIHSS nursing documentation: reviewed/agree
[2024-12-04 10:14] VITALS: BP 132/89; PULSE 65; RESP 13; TEMP 36.5; O2SAT 98
[2024-12-04] MEDS: ACETAMINOPHEN 500 MG TABLET 1000 MG PO (10:23)
[2024-12-04 10:39] LABS: Hematocrit 41.1 % (42.0-52.0); Hemoglobin 14.3 g/dL (14.0-18.0); Immature Granulocyte Percent A 0.4 % (0-0.5); Lymphocytes Absolute Auto 1.77 K/mm3 (0.9-3.2); Mean Corpuscular HGB Conc 34.8 g/dl (32-36); Mean Corpuscular Hemoglobin 31.1 pg (26-34); Mean Corpuscular Volume 89.3 fl (80-100); Nucleated Red Blood Cells Absolute Auto 0.000 K/mm3 (0.0-0.012); Nucleated Red Blood Cells Perc 0.0 % (0.0-0.2); Platelet Count Result 240 k/mm3 (150-375); Red Blood Count 4.60 M/mm3 (4.6-6.20); White Blood Count 7.9 K/mm3 (4.5-10.0)
[2024-12-04 11:01] LABS: Alanine Aminotransferase 34 U/L (6-50); Albumin Level 4.5 g/dL (3.5-5.1); Alkaline Phosphatase 65 U/L (38-126); Anion Gap 9 mmol/L (4-12); Aspartate Amino Transferase 32 U/L (17-59); Bilirubin,Total 1.4 mg/dL (0.2-1.3); Blood Urea Nitrogen 21 mg/dL (9-20); Calcium 9.2 mg/dL (8.4-10.2); Carbon Dioxide 28 mmol/L (22-30); Chloride 103 mmol/L (98-107); Estimated CRCL calculation 91 ml/min; Estimated Glomerular Filt Rate > 60; Glucose 111 mg/dL (65-110); Potassium 2.9 mmol/L (3.4-5.0); Sodium 140 mmol/L (137-145); Total Protein 7.7 g/dL (6.3-8.2)
[2024-12-04 11:11] LABS: Troponin I < 0.012 ng/mL (0.000-0.034)
[2024-12-04 11:21] LABS: INR 1.0; Prothrombin Time 13.5 Seconds (11.1-14.7)
[2024-12-04 11:22] LABS: Partial Thromboplastin Time 21.7 Seconds (22.3-36.8)
[2024-12-04] MEDS: POTASSIUM CHLORIDE 20 MEQ ER TABLET 40 MEQ PO (12:51)
[2024-12-04] MEDS: KCL 20 MEQ/SW 100 ML 100 ML 50 MEQ IVPB (12:53)
[2024-12-04 12:59] VITALS: BP 138/97; PULSE 60; RESP 18; O2SAT 98
[2024-12-04] MEDS: SODIUM CHLORIDE 0.9% IV 1,000 ML 999 ML IV CONT (13:06)
[2024-12-04 13:27] LABS: Troponin I < 0.012 ng/mL (0.000-0.034)
[2024-12-04 15:45] VITALS: BP 157/109; PULSE 62; RESP 18; TEMP 36.6; O2SAT 98
== END 2024-12-04 16:15 | disposition home or self-care (01) ==
PROVIDERS: Emergency Provider Nurse Practitioner Family; PCP Internal Medicine
DX: R55 Syncope and collapse (principal); E87.6 Hypokalemia
CPT/HCPCS: 36415; 70450; 71045; 80053; 84484; 85025; 85380; 85610; 85730; 93005; 96365; 96366; 99284; A9270; J3480; J7030